=== PATIENT | female | born 1990 | race Caucasian/White ===

== ENCOUNTER 2016-10-24 18:31 | Emergency (ER) | payer OTHER ==
[2016-10-24 18:53] VITALS: BP 102/59
--- NOTE | 2016-10-25 04:55 | Emergency Department Report ---
Entered by ANDER DAVIDSON, acting as scribe for LARS CROWE PA. ED ENT HPI - General Chief complaint: Dental/Oral Stated complaint: RT SIDE JAW PAIN Time Seen by Provider: 10/24/16 18:59 Source: patient Mode of arrival: Ambulatory Limitations: No Limitations - History of Present Illness Initial comments: 26 year old female with no significant PMHx presents to the ED c/o right inner jaw pain that began 1 week ago. Patient states that she could possibly have an abscess. Rates pain as 8/10 in severity and describes pain as throbbing in quality. No associated symptoms, denies chest pain, fever, chills, nausea, vomiting, and SOB. She states that her jaw pain worsens with eating, chewing, and swallowing. Notes that she's been taking Advil with temporary relief. Denies any sick contacts. Uses tobacco products daily. NKDA. VO complaint: other (right jaw pain ) Onset/Timin -: week(s) Location: other (right jaw) Severity: moderate Severity scale (0 -10): 8 Quality: other (throbbing) Consistency: constant Improves with: other (Advil temporarily) Worsens with: swallowing, eating Associated Symptoms: pain with swallowing. denies: fever, cough, gum swelling, discharge from ear, rhinorrhea, other (chest pain, SOB, nausea, and vomiting) - Related Data Previous Rx's Medication Instructions Recorded Last Taken Type Naproxen [Naprosyn] 500 mg PO BID #30 tablet 10/24/16 Unknown Rx Penicillin Vk [Veetids TAB] 500 mg PO QID #56 tablet 10/24/16 Unknown Rx Allergies Allergy/AdvReac Type Severity Reaction Status Date / Time No Known Allergies Allergy Unverified 10/24/16 18:48 ED Dental HPI - General Chief complaint: Dental/Oral Stated complaint: RT SIDE JAW PAIN Time Seen by Provider: 10/24/16 18:59 Source: patient Mode of arrival: Ambulatory Limitations: No Limitations - History of Present Illness MD complaint: other (right jaw pain) Onset/Timin -: week(s) Severity: moderate Quality: other (throbbing) Consistency: constant Improves with: other (Advil temporarily) Worsens with: swallowing, eating, chewing Dental Associated Symptons: Yes: Sore Throat. No: Headache, Earache, Gum Swelling, Fever - Related Data Previous Rx's Medication Instructions Recorded Last Taken Type Naproxen [Naprosyn] 500 mg PO BID #30 tablet 10/24/16 Unknown Rx Penicillin Vk [Veetids TAB] 500 mg PO QID #56 tablet 10/24/16 Unknown Rx Allergies Allergy/AdvReac Type Severity Reaction Status Date / Time No Known Allergies Allergy Unverified 10/24/16 18:48 ED Review of Systems Comment: All other systems reviewed and negative Constitutional: denies: chills, fever, other (tingling) ENT: dental pain. denies: ear pain, throat pain, congestion Respiratory: denies: cough, orthopnea, shortness of breath Cardiovascular: denies: chest pain, palpitations Endocrine: no symptoms reported Gastrointestinal: denies: abdominal pain, nausea, vomiting Musculoskeletal: other (right jaw pain) Neurological: denies: headache, weakness, numbness ED Past Medical Hx - Past Medical History Previous Medical History?: No - Surgical History Past Surgical History?: No - Social History Smoking Status: Current Every Day Smoker Substance Use Type: None - Medications Home Medications: Home Medications Medication Instructions Recorded Confirmed Last Taken Type Naproxen [Naprosyn] 500 mg PO BID #30 tablet 10/24/16 Unknown Rx Penicillin Vk [Veetids TAB] 500 mg PO QID #56 tablet 10/24/16 Unknown Rx ED Physical Exam - General Limitations: No Limitations General appearance: alert, in no apparent distress - Head Head exam: Present: atraumatic, normocephalic - Eye Eye exam: Present: normal appearance, EOMI Pupils: Present: normal accommodation - ENT ENT exam: Present: normal exam, normal orophraynx, mucous membranes moist, normal external ear exam, other (tenderness to palpation of right upper gums, but no gum swelling, no erythema present, no dental abscesses present) - Expanded ENT Exam Expanded Mouth exam: Absent: drooling, trismus, muffled voice Teeth exam: Present: normal inspection, dental tenderness # (1-4), other ( tenderness to palpation of the right TM joint) Throat exam: Negative: tonsillar erythema, tonsillomegaly, tonsillar exudate - Neck Neck exam: Present: normal inspection, full ROM. Absent: tenderness, lymphadenopathy - Respiratory Respiratory exam: Present: normal lung sounds bilaterally. Absent: respiratory distress, wheezes, rales, rhonchi, stridor - Cardiovascular Cardiovascular Exam: Present: regular rate, normal rhythm. Absent: systolic murmur, diastolic murmur, rubs, gallop - GI/Abdominal GI/Abdominal exam: Present: soft. Absent: distended, tenderness, guarding, rebound, rigid - Extremities Exam Extremities exam: Present: normal inspection, full ROM - Back Exam Back exam: Present: normal inspection, full ROM - Neurological Exam Neurological exam: Present: alert, oriented X3 - Psychiatric Psychiatric exam: Present: normal affect, normal mood - Skin Skin exam: Present: warm, dry, intact, other (right jaw swelling). Absent: rash ED Course Vital Signs 10/24/16 18:48 Temperature 98.2 F Pulse Rate 65 Respiratory 16 Rate Blood Pressure 102/59 O2 Sat by Pulse 100 Oximetry ED Medical Decision Making - Lab Data Vital Signs 10/24/16 18:48 Temperature 98.2 F Pulse Rate 65 Respiratory 16 Rate Blood Pressure 102/59 O2 Sat by Pulse 100 Oximetry - Medical Decision Making 26-year-old female presents today with right upper jaw and right TM joint pain. Patient is in no acute distress at this time. Referral for dentist has been provided. She will be discharged home and is encouraged to follow up with a primary care provider. She will be sent home on penicillin VK and naproxen is encouraged to return to the emergency room for any worsening symptoms. ED Disposition Clinical Impression: Toothache, TMJ tenderness Disposition: DISCHARGED TO HOME OR SELFCARE Is pt being admited?: No Does the pt Need Aspirin: No Condition: Stable Instructions: Temporomandibular Disorder (ED), Toothache (ED) Additional Instructions: Follow-up with primary care provider and dentist. Return to the emergency department if symptoms worsen. Prescriptions: Naproxen [Naprosyn] 500 mg PO BID #30 tablet Penicillin Vk [Veetids TAB] 500 mg PO QID #56 tablet Referrals: PRIMARY CARE,MD [Primary Care Provider] - 3-5 Days [facility] [Outside] - 3-5 Days [facility] [Outside] - 3-5 Days Forms: Accompanied Note, Work/School Release Form(ED) Time of Disposition: 19:41 This documentation as recorded by the LETY hurd JASMINE,accurately reflects the service I personally performed and the decisions made by ,LARS CROWE PA.
== END 2016-10-24 20:05 | disposition home or self-care (01) ==
LOC: ED 18:31
DX: M26.621 Arthralgia of right temporomandibular joint (principal); K08.89 Other specified disorders of teeth and supporting structures; F17.200 Nicotine dependence, unspecified, uncomplicated
CPT/HCPCS: 99282